=== PATIENT | female | born 1995 | race African-American/Black ===

== ENCOUNTER 2019-01-22 05:16 | Inpatient (IN) ==
[2019-01-22] MEDS ORDERED: KEFZOL 1 GM/D5W 1 GM/50 ML IVPB IV PRN (05:19)
[2019-01-22] MEDS ORDERED: REGLAN IV ONE (05:22)
[2019-01-22] MEDS ORDERED: BICITRA PO ONE (05:22)
[2019-01-22] MEDS: LR 1,000 ML IV SCH ×2 (05:43→06:39)
[2019-01-22 05:53] LABS: URINE SOURCE VOIDED
[2019-01-22 05:56] LABS: BASO# 0.01 X1000 (0.0-0.2); BASO% 0.1 % (0.0-0.8); EOS# 0.02 X1000 (0.0-0.7); EOS% 0.2 % (0.0-10.0); HEMATOCRIT 31.4 % (37.0-47.0); HEMOGLOBIN 9.5 g/dL (12.0-16.0); IMM GRAN# 0.03 X1000 (0.0-0.04); IMM GRAN% 0.3 % (0.0-0.5); LYMPH# 1.63 X1000 (1.2-3.4); MCH 22.8 PG (27-31); MCHC 30.3 g/dL (33-37); MCV 75.5 FL (81-99); MONO# 0.75 X1000 (0.11-0.59); MONO% 8.7 % (1.7-9.3); MPV 12.8 FL (7.4-10.4); NEUT# 6.15 X1000 (1.4-6.5); NEUT% 71.7 % (42.2-75.2); PLT 161 X1000 (130-400); RBC 4.16 XMIL (4.2-5.4); RDW 16.2 % (11.5-14.5); WBC 8.59 X1000 (4.8-10.8)
[2019-01-22 06:07] LABS: BILIRUBIN URINE NEGATIVE (NEGATIVE); BLOOD URINE NEGATIVE (NEGATIVE); CLARITY CLEAR (CLEAR); COLOR YELLOW; GLUCOSE URINE NEGATIVE (NEGATIVE); KETONE URINE TRACE mg/dL (NEGATIVE); LEUKOCYTES URINE 1+ (NEGATIVE); NITRITE URINE NEGATIVE (NEGATIVE); PROTEIN URINE 2+(100 mg/dL) mg/dL (NEGATIVE); UROBILINOGEN URINE 1 mg/dL
[2019-01-22 06:13] LABS: UR AMPHETAMINES QUAL NONE DETECTED (NONE DETECT); UR BARBITUATES QUAL NONE DETECTED (NONE DETECT); UR BENZODIAZEPIN QUAL NONE DETECTED (NONE DETECT); UR CANNABINOIDS QUAL NONE DETECTED (NONE DETECT); UR COCAINE QUAL NONE DETECTED (NONE DETECT); UR METHADONE QUAL NONE DETECTED (NONE DETECT); UR METHAMPHETAMINE QUAL NONE DETECTED (NONE DETECT); UR OPIATES QUAL NONE DETECTED (NONE DETECT); UR OXYCODONE QUAL NONE DETECTED (NONE DETECT); UR PCP QUAL NONE DETECTED (NONE DETECT); UR PROPOXYPHENE QUAL NONE DETECTED (NONE DETECT); UR TCA QUAL NONE DETECTED (NONE DETECT)
[2019-01-22] MEDS ORDERED: DURAMORPH ONE (06:55)
[2019-01-22] MEDS ORDERED: ZOFRAN ONE (06:56)
[2019-01-22] MEDS ORDERED: PITOCIN ONE ×2 (06:56→08:16)
[2019-01-22] MEDS ORDERED: TORADOL ONE (07:20)
[2019-01-22] MEDS ORDERED: HYDROXYZINE IM PRN (08:27)
[2019-01-22] MEDS ORDERED: M-M-R II VACCINE SUBQ ONE (08:27)
[2019-01-22] MEDS ORDERED: PHENERGAN IM PRN (08:27)
[2019-01-22] MEDS ORDERED: DEMEROL PO PRN ×2 (08:27)
[2019-01-22] MEDS ORDERED: DEMEROL IM PRN (08:27)
[2019-01-22] MEDS ORDERED: BOOSTRIX VACCINE IM ONE (08:27)
[2019-01-22] MEDS ORDERED: AMBIEN PO PRN (08:27)
[2019-01-22] MEDS ORDERED: PITOCIN IM PRN (08:27)
[2019-01-22] MEDS ORDERED: MYLICON PO PRN (08:27)
[2019-01-22] MEDS ORDERED: PITOCIN 20 UNITS/NS 20 UNITS/1,000 ML IV.SOLN IV ONE (08:27)
[2019-01-22] MEDS ORDERED: ATARAX PO PRN (08:27)
[2019-01-22] MEDS ORDERED: DULCOLAX PR PRN (08:27)
[2019-01-22] MEDS ORDERED: ZOFRAN ODT PO PRN (09:15)
[2019-01-22] MEDS ORDERED: BENADRYL IV PRN (09:15)
[2019-01-22] MEDS ORDERED: NARCAN INJ PRN (09:15)
[2019-01-22] MEDS ORDERED: ZOFRAN IV PRN ×2 (09:15)
--- NOTE | 2019-01-22 10:15 | HISTORY AND PHYSICAL ---
HISTORY OF PRESENT ILLNESS: The patient is a 23-year-old, G3, P 1-0-1-1, at 39 weeks and 0 days, estimated due date of 01/29/2019 via first trimester ultrasound, who presents for a scheduled repeat section. The patient reports good movement. Denies contractions, leakage of fluid, or bleeding. PAST MEDICAL HISTORY: Significant for gestational hypertension. PAST SURGICAL HISTORY: delivery in 2018. MEDICATIONS: vitamins. ALLERGIES: Cinnamon, hives reaction. FAMILY HISTORY: Father, paternal grandmother, and paternal grandfather with hypertension. SOCIAL HISTORY: Denies tobacco, alcohol, or drug use. NAIL PROFESSIONAL HISTORY: Denies STD exposure. Menarche at age 11. OB HISTORY: G3, P1-0-1-1. One full-term delivery in 2018. One miscarriage, SAB, at 4 weeks in 2017. PHYSICAL EXAMINATION: VITAL SIGNS: Temperature 98 degrees Fahrenheit, pulse rate 90, respiration rate 20, blood pressure 156/90, O2 sat is 100% on room air. Weight 101 pounds, height 5 feet 2 inches, BMI 36.8 kg/m2. GENERAL: No acute distress. Alert, awake, oriented x3. CARDIOVASCULAR: Regular rate and rhythm. Positive S1, S2. RESPIRATORY: Clear to auscultation bilaterally. ABDOMEN: Gravid, nontender, soft. EXTREMITIES: No calf tenderness. IMAGING: Electronic monitoring: Baseline 160 beats per minute, moderate variability, positive accelerations, negative decelerations. [place] contractions every 6 minutes. LABORATORY DATA: WBCs 8.59, hemoglobin 9.5, hematocrit 31.4, platelets 161,000. RPR nonreactive. GBS unknown. Blood type O-positive. ASSESSMENT: Ms. Latif is a 23-year-old, G3, P1-0-1-1, at 39 weeks and 0 days, who presents for a scheduled repeat delivery. PLAN: 1. Admit to Labor and Delivery. 2. Obtain routine labs for repeat section. 3. Continuous monitoring. 4. Prophylactic antibiotics 1 hour prior to incision. 5. Monitor for hypertension closely.
[2019-01-22] MEDS: FERROUS SULFATE PO SCH ×2 (10:20→21:56)
[2019-01-22] MEDS: MYLICON PO SCH ×3 (10:21→21:55)
[2019-01-22 13:26] LABS: AGAP 9; ALKALINE PHOSPHATASE 187 U/L (32-104); BUN 7 mg/dL (8-22); CALCIUM 8.6 mg/dL (8.8-10.2); CHLORIDE 104 mmol/L (98-107); COSMO 271; CREATININE 0.6 mg/dL (0.5-0.9); ESTIMATED GFR > 60; GLUCOSE 89 mg/dL (70-104); GOT 14 U/L (10-30); GPT 6 U/L (10-36); POTASSIUM 4.3 mmol/L (3.5-5.1); SODIUM 137 mmol/L (136-145); TCO2 24 mmol/L (25-35); URIC ACID 4.5 mg/dL (2.4-5.7)
[2019-01-22] MEDS: PITOCIN 10 UNITS/NS 1,000 ML IV SCH ×2 (14:39→22:27)
[2019-01-22 17:38] LABS: LDH 214 U/L (135-214)
[2019-01-22] MEDS: PERICOLACE PO SCH (21:57)
[2019-01-23 01:48] LABS: INFLUENZA A NEGATIVE (NEGATIVE); INFLUENZA B NEGATIVE (NEGATIVE)
[2019-01-23] MEDS: MUCINEX PO SCH ×2 (02:02→14:53)
--- NOTE | 2019-01-23 05:18 | Diag Imaging Result Doc PS360 ---
EXAM: CHEST-PORTABLE HISTORY: Fever and coughing TECHNIQUE: Chest single view COMPARISON: None. FINDINGS: Poor inspiratory effort. The heart is not enlarged. The vessels are not distended. There are no infiltrates. No effusion identified. IMPRESSION: No pneumonia. Electronically signed by Ilan Sheth 01/23/2019 5:16 AM
[2019-01-23 06:22] LABS: EOS# 0.01 X1000 (0.0-0.7); EOS% 0.1 % (0.0-10.0); HEMATOCRIT 26.1 % (37.0-47.0); HEMOGLOBIN 7.7 g/dL (12.0-16.0); IMM GRAN# 0.02 X1000 (0.0-0.04); IMM GRAN% 0.3 % (0.0-0.5); LYMPH# 1.02 X1000 (1.2-3.4); LYMPH% 13.5 % (20.5-51.1); MCH 22.6 PG (27-31); MCHC 29.5 g/dL (33-37); MCV 76.5 FL (81-99); MONO# 0.58 X1000 (0.11-0.59); MONO% 7.7 % (1.7-9.3); NEUT# 5.91 X1000 (1.4-6.5); NEUT% 78.4 % (42.2-75.2); PLT 121 X1000 (130-400); RBC 3.41 XMIL (4.2-5.4); RDW 16.2 % (11.5-14.5); WBC 7.54 X1000 (4.8-10.8)
[2019-01-23 06:35] LABS: LYMPHS 13 % (21-51); MONO 7 % (1-9); SEGS 80 % (42-75)
[2019-01-23 06:45] LABS: HEMATOCRIT 25.7 % (37.0-47.0); HEMOGLOBIN 7.7 g/dL (12.0-16.0); IMM GRAN# 0.01 X1000 (0.0-0.04); IMM GRAN% 0.1 % (0.0-0.5); LYMPH# 1.09 X1000 (1.2-3.4); LYMPH% 13.9 % (20.5-51.1); MCH 22.7 PG (27-31); MCV 75.8 FL (81-99); MONO# 0.54 X1000 (0.11-0.59); MONO% 6.9 % (1.7-9.3); MPV 12.1 FL (7.4-10.4); NEUT% 79.1 % (42.2-75.2); PLT 133 X1000 (130-400); RBC 3.39 XMIL (4.2-5.4); RDW 16.2 % (11.5-14.5); WBC 7.84 X1000 (4.8-10.8)
[2019-01-23 07:00] LABS: CHLORIDE 103 mmol/L (98-107); POTASSIUM 3.9 mmol/L (3.5-5.1); SODIUM 134 mmol/L (136-145); TCO2 22 mmol/L (25-35)
[2019-01-23 07:01] LABS: AGAP 9; ALBUMIN 2.8 g/dL (3.5-5.0); ALKALINE PHOSPHATASE 160 U/L (32-104); BUN 4 mg/dL (8-22); CALCIUM 7.7 mg/dL (8.8-10.2); COSMO 264; CREATININE 0.6 mg/dL (0.5-0.9); ESTIMATED GFR > 60; GLUCOSE 75 mg/dL (70-104); GOT 20 U/L (10-30); GPT 6 U/L (10-36); TOTAL PROTEIN 5.4 g/dL (6.3-8.3); URIC ACID 4.6 mg/dL (2.4-5.7)
[2019-01-23 07:33] LABS: UR CREAT RANDOM 37.6 mg/dL (11-20); UR PROT RANDOM 36.1 mg/dL
--- NOTE | 2019-01-23 07:40 | OB/GYN PROGRESS NOTE ---
Progress Note OB - . OB Progress Note: Vital Signs - 24 hr 01/22/19 08:30 01/22/19 08:35 01/22/19 08:40 Temperature 97.5 F L Pulse Rate 73 59 L 72 Respiratory Rate 20 20 20 Blood Pressure Blood Pressure [Right Arm] 124/86 133/93 137/87 O2 Sat by Pulse Oximetry 100 100 100 01/22/19 08:45 01/22/19 08:50 01/22/19 08:55 Temperature Pulse Rate 65 85 94 H Respiratory Rate 20 20 20 Blood Pressure Blood Pressure [Right Arm] 138/92 139/97 141/85 O2 Sat by Pulse Oximetry 100 100 100 01/22/19 09:00 01/22/19 09:10 01/22/19 09:20 Temperature Pulse Rate 67 65 82 Respiratory Rate 20 20 20 Blood Pressure Blood Pressure [Right Arm] 158/98 156/92 166/103 O2 Sat by Pulse Oximetry 100 100 99 01/22/19 09:30 01/22/19 10:00 01/22/19 10:15 Temperature Pulse Rate 67 77 83 Respiratory Rate 20 20 20 Blood Pressure 178/96 163/101 165/100 Blood Pressure [Right Arm] 178/96 O2 Sat by Pulse Oximetry 99 100 100 01/22/19 10:30 01/22/19 11:00 01/22/19 11:15 Temperature Pulse Rate 68 92 H 92 H Respiratory Rate 20 20 20 Blood Pressure 153/98 156/102 151/96 Blood Pressure [Right Arm] O2 Sat by Pulse Oximetry 98 100 99 01/22/19 11:30 01/22/19 12:30 01/22/19 13:00 Temperature Pulse Rate 82 92 H 83 Respiratory Rate 20 20 20 Blood Pressure 157/99 125/85 164/95 Blood Pressure [Right Arm] O2 Sat by Pulse Oximetry 98 98 98 01/22/19 13:30 01/22/19 14:30 01/22/19 15:30 Temperature 98.2 F 98.7 F 98.8 F Pulse Rate 97 H 83 89 Respiratory Rate 20 20 20 Blood Pressure 144/91 140/83 148/84 Blood Pressure [Right Arm] O2 Sat by Pulse Oximetry 97 96 97 01/22/19 16:30 01/22/19 16:52 01/22/19 18:30 Temperature Pulse Rate 94 H Respiratory Rate 18 16 Blood Pressure 146/89 141/83 Blood Pressure [Right Arm] O2 Sat by Pulse Oximetry 99 01/22/19 19:51 01/22/19 20:44 01/23/19 00:16 Temperature 99.8 F H 100.4 F H Pulse Rate 97 H 100 H Respiratory Rate 22 24 Blood Pressure 153/90 137/81 159/85 Blood Pressure [Right Arm] O2 Sat by Pulse Oximetry 98 96 01/23/19 03:55 01/23/19 06:31 Temperature 100.0 F H Pulse Rate 112 H Respiratory Rate 24 Blood Pressure 156/95 141/100 Blood Pressure [Right Arm] O2 Sat by Pulse Oximetry 95 Laboratory Results - last 24 hr 01/22/19 01/22/19 01/23/19 05:40 12:55 01:00 WBC RBC Hgb Hct MCV MCH MCHC RDW Std Deviation Plt Count MPV Immature Gran % (Auto) Neut % (Auto) Lymph % (Auto) [place] % (Auto) Eos % (Auto) Baso % (Auto) Immature Gran # (Auto) Neut # (Auto) Lymph # (Auto) [place] # (Auto) Eos # (Auto) Baso # (Auto) Segmented Neutrophils Lymphocytes Monocytes Sodium 137 Potassium 4.3 Chloride 104 Carbon Dioxide 24 L Anion Gap 9 BUN 7 L Creatinine 0.6 Estimated GFR/1.73 m2 > 60 BUN/Creatinine Ratio 12 Glucose 89 Calculated Osmolality 271 Uric Acid 4.5 Calcium 8.6 L Total Bilirubin 0.30 AST 14 ALT 6 L Alkaline Phosphatase 187 H Lactate Dehydrogenase 214 Total Protein 6.0 L Albumin 3.0 L Globulin 3.0 Albumin/Globulin Ratio 1.0 Influenza A (Rapid) NEGATIVE Influenza B (Rapid) NEGATIVE Blood Type O POSITIVE Antibody Screen NEGATIVE 01/23/19 01/23/19 01/23/19 05:03 06:26 06:26 WBC 7.54 7.84 RBC 3.41 L 3.39 L Hgb 7.7 L D 7.7 L Hct 26.1 L 25.7 L MCV 76.5 L 75.8 L MCH 22.6 L 22.7 L MCHC 29.5 L 30.0 L RDW Std Deviation 16.2 H 16.2 H Plt Count 121 L 133 MPV Not Reportable 12.1 H Immature Gran % (Auto) 0.3 0.1 Neut % (Auto) 78.4 H 79.1 H Lymph % (Auto) 13.5 L 13.9 L [place] % (Auto) 7.7 6.9 Eos % (Auto) 0.1 0.0 Baso % (Auto) 0.0 0.0 Immature Gran # (Auto) 0.02 0.01 Neut # (Auto) 5.91 6.20 Lymph # (Auto) 1.02 L 1.09 L [place] # (Auto) 0.58 0.54 Eos # (Auto) 0.01 0.00 Baso # (Auto) 0.00 0.00 Segmented Neutrophils 80 H Lymphocytes 13 L Monocytes 7 Sodium 134 L Potassium 3.9 Chloride 103 Carbon Dioxide 22 L Anion Gap 9 BUN 4 L Creatinine 0.6 Estimated GFR/1.73 m2 > 60 BUN/Creatinine Ratio 7 Glucose 75 Calculated Osmolality 264 Uric Acid 4.6 Calcium 7.7 L Total Bilirubin 0.40 AST 20 ALT 6 L Alkaline Phosphatase 160 H Lactate Dehydrogenase Total Protein 5.4 L Albumin 2.8 L Globulin 3.0 Albumin/Globulin Ratio 1.0 Influenza A (Rapid) Influenza B (Rapid) Blood Type Antibody Screen POD# 1 repeat csection. with complaints of sinus congestion and cough. No SOB, CP or leg pain. Good pain control. María reg diet. Voiding without diff. Decreased lochia VSS AF Tmax 100.4 GEN - pt in no apparent distress, A&O x 3 ABD - soft, NT, ND, FF, Bandage - clean Extreme - No C/C/E A/p POD#1 - Cont PP care HTN - BP have not worsened - PIH labs stable - pt has been started on Procardia Anemia - Hgb stable at 7.7 - not symptomatic - on iron. Sinus congestion - chest x ray - Neg, WBC WNL Encourage ambulation
[2019-01-23] MEDS ORDERED: LR 1,000 ML IV SCH (08:27)
[2019-01-23] MEDS: MYLICON PO SCH ×6 (09:06→21:04)
[2019-01-23] MEDS: ADALAT CC PO SCH (09:06)
[2019-01-23] MEDS: FERROUS SULFATE PO SCH ×2 (09:06→21:04)
[2019-01-23] MEDS ORDERED: SALINE LOCK IV FLUID XX ONE (09:09)
[2019-01-23] MEDS: MOTRIN PO PRN (14:59)
[2019-01-23] MEDS: PERICOLACE PO SCH (21:04)
[2019-01-24] MEDS: MOTRIN PO PRN ×2 (00:20→14:55)
[2019-01-24] MEDS: MUCINEX PO SCH ×2 (00:36→13:49)
--- NOTE | 2019-01-24 07:10 | OB/GYN PROGRESS NOTE ---
Progress Note OB - . Patient Problems: Current Active Problems Problem Status Onset Pre-eclampsia Acute OB Progress Note: Vital Signs - 24 hr 01/23/19 07:54 01/23/19 11:10 01/23/19 11:15 Temperature 97.6 F Pulse Rate 95 H 113 H 107 H Respiratory Rate 18 18 18 Blood Pressure 139/81 O2 Sat by Pulse Oximetry 97 96 99 01/23/19 15:00 01/23/19 15:03 01/23/19 19:45 Temperature 97 F L 96.3 F L Pulse Rate 109 H 81 Respiratory Rate 20 18 Blood Pressure 150/92 148/86 136/83 O2 Sat by Pulse Oximetry 99 100 01/23/19 20:35 01/24/19 00:15 01/24/19 04:37 Temperature 96.9 F L 96.2 F L Pulse Rate 81 90 78 Respiratory Rate 18 20 18 Blood Pressure 139/87 140/94 O2 Sat by Pulse Oximetry 99 98 Laboratory Results - last 24 hr 01/23/19 06:06 Ur Random Creatinine 37.6 H U Random Total Protein 36.1 Protein/Creatinin Ratio 1.0 No complaints, denies PIH/Orthostatic symptoms. A&O NAD CTAB RRR S/ND/appropriate post op discomfort Incision C/D/I without E/E/I 2+ bilateral GILBERT POD 2 s/p repeat LTCS doing well. Platelets trending down, will recheck this AM. Continue to monitor for signs or symptoms of PPD. - Ambulate - Post op care - anticipate D/C home Monday.
[2019-01-24 08:37] LABS: HEMATOCRIT 29.5 % (37.0-47.0); HEMOGLOBIN 8.7 g/dL (12.0-16.0); RBC 3.83 XMIL (4.2-5.4); WBC 9.31 X1000 (4.8-10.8)
[2019-01-24 08:38] LABS: BASO# 0.01 X1000 (0.0-0.2); BASO% 0.1 % (0.0-0.8); EOS# 0.03 X1000 (0.0-0.7); EOS% 0.3 % (0.0-10.0); IMM GRAN# 0.04 X1000 (0.0-0.04); IMM GRAN% 0.4 % (0.0-0.5); LYMPH# 1.37 X1000 (1.2-3.4); LYMPH% 14.7 % (20.5-51.1); MCH 22.7 PG (27-31); MCHC 29.5 g/dL (33-37); MONO# 0.48 X1000 (0.11-0.59); MONO% 5.2 % (1.7-9.3); MPV 12.2 FL (7.4-10.4); NEUT# 7.38 X1000 (1.4-6.5); NEUT% 79.3 % (42.2-75.2); PLT 166 X1000 (130-400); RDW 16.4 % (11.5-14.5)
[2019-01-24] MEDS: FERROUS SULFATE PO SCH ×2 (08:52→22:02)
[2019-01-24] MEDS: PRECARE PO SCH (08:52)
[2019-01-24] MEDS: ADALAT CC PO SCH (08:52)
[2019-01-24] MEDS: MYLICON PO SCH ×5 (08:53→22:02)
[2019-01-24] MEDS: NORCO-10 PO PRN (14:51)
[2019-01-24] MEDS: PERICOLACE PO SCH (22:02)
[2019-01-25] MEDS: MOTRIN PO PRN (00:28)
[2019-01-25] MEDS: NORCO-10 PO PRN (00:28)
[2019-01-25] MEDS: MUCINEX PO SCH (02:22)
--- NOTE | 2019-01-25 06:15 | OB/GYN PROGRESS NOTE ---
Progress Note OB - . Patient Problems: Current Active Problems Problem Status Onset S/P repeat low transverse Acute Pre-eclampsia Acute OB Progress Note: Vital Signs - 24 hr 01/24/19 07:28 01/24/19 08:29 01/24/19 12:00 Temperature 96.1 F L 96.8 F L Pulse Rate 88 111 H 86 Respiratory Rate 18 18 18 Blood Pressure 141/85 137/92 O2 Sat by Pulse Oximetry 100 97 99 01/24/19 12:05 01/24/19 15:34 01/24/19 22:03 Temperature 97 F L 96.1 F L Pulse Rate 108 H 86 Respiratory Rate 18 22 Blood Pressure 130/75 134/87 O2 Sat by Pulse Oximetry 97 99 01/25/19 02:23 Temperature 97.1 F L Pulse Rate 87 Respiratory Rate 18 Blood Pressure 133/85 O2 Sat by Pulse Oximetry 100 Laboratory Results - last 24 hr 01/24/19 08:29 WBC 9.31 RBC 3.83 L Hgb 8.7 L Hct 29.5 L MCV 77.0 L MCH 22.7 L MCHC 29.5 L RDW Std Deviation 16.4 H Plt Count 166 MPV 12.2 H Immature Gran % (Auto) 0.4 Neut % (Auto) 79.3 H Lymph % (Auto) 14.7 L [place] % (Auto) 5.2 Eos % (Auto) 0.3 Baso % (Auto) 0.1 Immature Gran # (Auto) 0.04 Neut # (Auto) 7.38 H Lymph # (Auto) 1.37 [place] # (Auto) 0.48 Eos # (Auto) 0.03 Baso # (Auto) 0.01 HPI: Pt seen and examined. Currently w/o complaints. Ambulating and urinating w/o difficulty. Pain well controlled on PO pain med. Tolerating regular diet. Denies VILLAGOMEZ/scotomata/epigastric pain/fever/chills/N/V. Reports flatus and BM. +bottle feeding and decreased lochia. VS: please see above. GEN: NAD CV: RRR RESP: CTA b/l ABD: soft, NTTP, FF below umbilicus INC: C/D/I EXT: neg CT LABS: please see above ASSESSMENT: 23yo POD#3 s/p repeat CD PLAN: -Con;t PO pain meds -BP well controlled on Procardia 30 -OOB to ambulation -con't reg diet -plan for Mirena IUD for contraception -d/c home today
[2019-01-25 07:26] VITALS: BP 149/92
[2019-01-25] MEDS: MYLICON PO SCH ×2 (08:58→08:59)
[2019-01-25] MEDS: PRECARE PO SCH (08:58)
[2019-01-25] MEDS: FERROUS SULFATE PO SCH (08:58)
[2019-01-25] MEDS: ADALAT CC PO SCH (08:58)
--- NOTE | 2019-01-26 07:35 | OPERATIVE NOTE ---
PROCEDURE DATE: 01/22/2019 SURGEON: Dr. Brittany Mooney. 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 PREOPERATIVE DIAGNOSES: 1. Pablo intrauterine at 39 weeks based on 16 week ultrasound. 2. Previous ceased delivery x1. POSTOPERATIVE DIAGNOSES: 1. Pablo intrauterine at 39 weeks based on 16 week ultrasound. 2. Previous ceased delivery x1. PROCEDURE PERFORMED: Repeat low transverse section. ANESTHESIA: Spinal. ESTIMATED BLOOD LOSS: 700 mL. INDICATION FOR PROCEDURE: Ms. Latif is a 23-year-old, G2, P1-0-0-1 at 39 weeks gestation by 16 week ultrasound who presents for a repeat delivery. Surgical risks: The patient was informed of the risks and benefits of the procedure. Risks included, but were not limited to, bleeding, infection, injury to internal organs and possible hysterectomy. The patient expressed understanding of the risks involved. All questions were answered and the patient consents to the procedure. DESCRIPTION OF PROCEDURE: The patient was taken to the operating room where a time-out was performed to confirm correct patient and correct procedure. Spinal anesthesia was established and prophylactic IV antibiotics were administered. The patient was then placed in a dorsal supine position with a left tilt of the hips. The patient was then prepped and draped in the usual sterile fashion for a Pfannenstiel skin incision. An incision was made in the skin with a surgical scalpel and sharp dissection was carried out over subsequent layers of tissue, including the fascia followed by the Bovie electrocautery for hemostasis. The fascia was incised at the midline and the fascial incision was extended bilaterally using the Bovie electrocautery. The inferior edge of this fascial incision was grasped with Sonal clamps, tented up and the underlying rectus muscles were dissected off using the Bovie electrocautery. Attention was then turned to the superior edge which was grasped with Sonal clamps, tented up and the underlying rectus muscles were dissected off bluntly and sharply with the Bovie electrocautery. The rectus muscles were then divided at the midline and the peritoneum was identified at its upper margin taking care to avoid the bladder and enter bluntly. The peritoneal incision was extended superiorly and inferiorly using Metzenbaum scissors with good visualization of the bladder. The bladder blade was inserted and the vesical peritoneum was identified, grasped with smooth pickups and cut laterally to both sides using Metzenbaum scissors. A bladder flap was then created with sharp dissection with the Metzenbaum scissors. The bladder blade was reinserted, and a transverse incision was made in the lower uterine segment using the same scalpel. The uterine incision was extended bilaterally using blunt dissection. The amniotic sac was entered, and the meconium was noted. The surgeon's hand was placed into the uterine cavity. The head was identified, elevated into the abdomen and delivered through the uterine incision with the assistance of fundal pressure. The was examined for nuchal cord. Nuchal cord x 1 was identified and reduced. The infant was then delivered with traction and the assistance of fundal pressure. On delivery, the cord was clamped and cut. The infant was then passed off the table to the waiting commercial correspondent staff for further care. Cord blood was obtained for analysis and routine blood testing. The placenta was delivered manually intact with a three-vessel cord. Oxytocin was administered by IV infusion to enhance uterine contractions. The uterus was exteriorized and cleared of all clots and remaining products of conception. The uterine incision was reapproximated using 1-0 Monocryl in a running locked fashion. A second horizontal imbricating stitch with 1-0 Monocryl absorbable suture was applied. Good hemostasis was confirmed. The uterus was placed into the abdomen and the pericolic gutters were cleared of all clots. Surgicel was applied to the uterine incision to support hemostasis or reinforce hemostasis. The fascia was reapproximated using 0 Vicryl absorbable suture in a running nonlocked fashion. The subcutaneous tissue was reapproximated using 2-0 plain gut in a running nonlocking fashion. The skin was reapproximated using 4-0 Monocryl on a Dinh stitch insert in a running subcuticular fashion. All needle, sponge, and instrument counts were noted to be correct x2 at the end of the procedure. The patient tolerated the procedure well and was transferred to the recovery room in stable condition. [facility]ENTER[facility]
--- NOTE | 2019-01-26 10:33 | DISCHARGE SUMMARY ---
ADMISSION DATE: 01/22/2019 DISCHARGE DATE: 01/25/2019 ADMISSION DIAGNOSES: 1. Intrauterine at 39 weeks. 2. Previous section times one. 3. Desire for repeat section. DISCHARGE DIAGNOSES: 1. Intrauterine at 39 weeks. 2. Previous section times one. 3. Desire for repeat section. 4. hypertension. PROCEDURE DURING HOSPITALIZATION: Repeat low transverse section. Date of surgery, 01/22/2019. HISTORY OF PRESENT ILLNESS AND PHYSICAL EXAMINATION: Per the dictated history and physical. HOSPITAL COURSE: The patient admitted at 39 weeks for a repeat section. A section was carried out without complication. The baby did well postoperatively. The patient complained of upper respiratory infection and low-grade temperature noted. Chest x-ray was performed and found to be benign. Elevated pressures were also noted. The patient started on Procardia 30 mg XL daily, which controlled blood pressure significantly. The patient denied any headaches, visual changes, epigastric pain, shortness of breath, fevers, chills, nausea or vomiting. The patient was ready for discharge to home on postoperative day #3. Her hematocrit was 29.5. She has Rh positive blood type. DISCHARGE MEDICATIONS: Continue ferrous sulfate 325 mg p.o. b.i.d., [place] 10 one tab p.o. q. 3-4 hours p.r.n., ibuprofen 800 mg p.o. q. 8 hours, nifedipine extended release 30 mg p.o. daily, vitamins 1 tab p.o. daily, [place]-Colace 1 tab p.o. at bedtime. DISPOSITION: The patient was discharged home with the following: Disposition home. Activity as tolerated. Diet as tolerated. Follow up in [address] Mooney to assess blood pressure and incision.
== END 2019-01-25 11:05 | disposition home or self-care (01) | DRG 788 ==
LOC: P.LD 05:16
PROVIDERS: ADMIT Obstetrics & Gynecology; ATTEND Obstetrics & Gynecology